=== PATIENT | female | born 1950 | race African-American/Black ===

== ENCOUNTER → 2016-05-05 | Outpatient (CLI) | payer BC, MEDICARE ==
--- NOTE | 2016-05-05 08:04 | RAD ---
EXAM: Sinus CT without contrast. HISTORY: Sinus pain. TECHNIQUE: Computed tomographic images of the paranasal sinuses were obtained without contrast. One or more of the following individualized dose reduction techniques were utilized for this examination: 1. Automated exposure control. 2. Adjustment of the mA and/or kV according to patient size. 3. Use of iterative reconstruction technique. COMPARISON: None. FINDINGS: There is minimal ethmoid and maxillary sinus mucosal thickening. There are small right maxillary sinus mucous retention cysts. The ostiomeatal units are patent. There is no nasal septal deviation. There is no sinus wall thickening or erosion. The orbits and mastoid air cells are unremarkable. There are multiple dental restorations and missing teeth. The visualized portions of the brain and calvarium are unremarkable. IMPRESSION: 1. Minimal maxillary and ethmoid sinus disease. 2. No evidence of acute sinusitis.
== END | disposition home or self-care (01) ==
LOC: CT 07:15
PROVIDERS: ATTEND Family Medicine
DX: J34.89 Other specified disorders of nose and nasal sinuses (principal)
CPT/HCPCS: 70486

== ENCOUNTER → 2017-02-15 | Outpatient (CLI) | payer BC ==
--- NOTE | 2017-02-16 16:20 | KCIC ---
DATE: 02/15/2017 EXAM: MAMMO LOGAN SCREENING BILATERAL HISTORY: Asymptomatic screening mammogram. Mother with a history of breast cancer diagnosed at age 63. COMPARISON: Prior mammograms from 02/03/2016, 07/03/2009 This study was interpreted with the benefit of Computerized Aided Detection (CAD). The breast parenchyma is primarily fatty replaced. Breast parenchyma level density A. FINDINGS: Bilateral CC and MLO views of the breasts were performed. Bilateral breast tomosynthesis was performed in CC and MLO projections. Right breast: There are no suspicious microcalcifications, masses or areas of architectural distortion. Left breast: There are no suspicious microcalcifications, masses or areas of architectural distortion. Findings are stable from prior mammogram. IMPRESSION: Negative 2-D and 3-D bilateral mammogram. Recommend annual screening mammography. BI-RADS CATEGORY: 1 NEGATIVE RECOMMENDED FOLLOW-UP: 12M 12 MONTH FOLLOW-UP PQRS compliance statement: Patient information was entered into a reminder system with a target due date 02/15/2018 for the next mammogram. Mammography is a sensitive method for finding small breast cancers, but it does not detect them all and is not a substitute for careful clinical examination. A negative mammogram does not negate a clinically suspicious finding and should not result in delay in biopsying a clinically suspicious abnormality. "Our facility is accredited by the [employer] Mammography Program."
== END | disposition home or self-care (01) ==
LOC: KCIC MAMMO 17:55
PROVIDERS: ATTEND Family Medicine
DX: Z12.31 Encounter for screening mammogram for malignant neoplasm of breast (principal); Z80.3 Family history of malignant neoplasm of breast
CPT/HCPCS: 77063; G0202; 77067

== ENCOUNTER → 2020-01-16 | Outpatient (CLI) | payer BC ==
--- NOTE | 2020-01-16 17:22 | RAD ---
Examination: KNEE STANDING BILAT AP, KNEE LEFT 4V History: PRIMARY OSTEOARTHRITIS OF LEFT KNEE. Comparison/Correlation: None Findings: 4 views of the left knee were obtained. Standing bilateral frontal view of the knees also provided. Joint spaces are normal. No acute fracture or bone destruction. No joint effusion. Soft tissues are unremarkable. No significant left medial or lateral compartment narrowing. Frontal view of the knees is unremarkable. Impression: No suspicious process. No significant degenerative change. Electronically signed by: Dread Dash MD (01/16/2020 5:19 PM) [id number]
== END | disposition home or self-care (01) ==
LOC: RAD 15:12
PROVIDERS: ATTEND Family Medicine
DX: M17.12 Unilateral primary osteoarthritis, left knee (principal)
CPT/HCPCS: 73564; 73565

== ENCOUNTER → 2020-02-15 | Outpatient (CLI) | payer BC ==
--- NOTE | 2020-02-15 09:43 | KCIC ---
Bilateral digital screening mammograms with 3-D tomosynthesis: Reason for examination: Routine screening. Comparison is made to previous studies dated back to 03/30/2012. Bilateral mammograms in CC and oblique projections were obtained with 2-D imaging and 3-D tomosynthesis imaging on a Siemens Inspiration unit and reviewed on the workstation. Interpretation was made with the benefit of CAD. The skin and nipples show no abnormalities. No abnormal axillary lymph nodes are seen. The breast parenchyma is predominantly fatty. (Breast density: Category A.) There appear to be some clustered calcifications developing in the 3:00 B position of the left breast. Some of these are coarse and may be associated with a small nodule and represent a degenerating fibroadenoma. Further evaluation however with coned compression magnification views and ultrasound is recommended. There are no other dominant masses, suspicious calcifications or architectural distortion. Impression: Clustered calcifications at the 3:00 B position of the left breast possibly associated with a small nodule. Some of these calcifications are coarse and may represent a degenerating fibroadenoma but further evaluation with coned compression magnification views and ultrasound is recommended. BI-RADS Category 0: Incomplete. Needs additional imaging evaluation. "Our facility is accredited by the [employer] Mammography Program." This patient's information has been entered into a reminder system for the patient to be notified with the results of her examination and a target date for the next mammogram. Electronically signed by: Chana Venegas MD (02/15/2020 9:41 AM) [id number]
== END ==
LOC: KCIC MAMMO 07:54
PROVIDERS: ATTEND Family Medicine
DX: Z12.31 Encounter for screening mammogram for malignant neoplasm of breast (principal); N64.89 Other specified disorders of breast
CPT/HCPCS: 77067

== ENCOUNTER → 2020-07-11 | Outpatient (CLI) | payer BC ==
[~2020-07-11] MED LIST: CHLOROPROCAINE 3% MPF 20 ML VIAL. IJ ONE
--- NOTE | 2020-07-11 09:52 | RAD ---
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 These are benign concordant re sults. Recommend return to routine screening. Electronically signed by: Dylan Cortes MD (07/16/2020 8:40 AM) [id number] ORIGINAL REPORT Examination: 1. Left breast vacuum assisted stereotactic biopsy 2. Left digital post procedure mammogram. INDICATION: 70-year-old woman with left breast calcifications recommended for biopsy. She has a histo ry of lidocaine allergy. TECHNIQUE AND FINDINGS: Informed consent was obtained and an appropriate procedural pause observed. Using standard sterile te chnique, stereotactic mammographic imaging guidance and a 9 gauge vacuum-assisted biopsy needle with local anesthesia (utilizing 3 percent Nesacaine in lieu of lidocaine), multiple vacuum assisted core biopsy samples were obtained of the calcifications in the anterior upper outer left breast. A specimen radiograph was obtained, confirming successful sampling of the calcifications targeted. Th e needle was therefore removed, a yosvany-shaped biopsy marker deployed, and hemostasis assured with dire ct breast compression for several minutes. Puncture site was dressed and postprocedure instructions were reviewed. Thereafter, 2 view left digital diagnostic mammogram confirmed satisfactory positioning of the biopsy marker in the area of targeted calcifications with a few residual calcifications still present. No p ostbiopsy hematoma. Patient tolerated the procedure without incident. Post procedure instructions were provided and patie nt discharged in stable condition to follow up with her referring physician IMPRESSION: Successful left breast stereotactic biopsy of coarse heterogeneous calcifications and satisfactory de ployment of a biopsy marker at the biopsy site. Pathology results are pending. An addendum will be is sued when pathology results become available. Electronically signed by: Dylan Cortes MD (07/11/2020 9:49 AM) [id number]
--- NOTE | 2020-07-15 15:07 | PATHOLOGY ---
[facility] Accession Number: [id number] . 01 Material submitted: . breast - LEFT BREAST TISSUE BIOPSY. Modifiers: left . 01 Clinical history: . CALCIFICATIONS CALCS IN SPECIMEN LEFT BREAST CALCIFICATIONS . 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 - Proliferative fibrocystic changes with florid ductal epithelial hyperplasia. (JPM:atiya 07/15/2020) [facility] 07/15/2020 1018 Local . 02 Comment: Sections of the left breast needle biopsy reveal a sclerotic ductal papilloma. Within the area of sclerosis there are focal entrapped tubular structures and focal stromal calcifications. The breast tissue elsewhere shows stromal fibrosis, duct ectasia, and florid ductal epithelial hyperplasia. Immunoperoxidase stains for myoepithelial cells are obtained on two of the blocks and yield the following results: . P63 (A1): Presence of myoepithelial cells within tubular structures of sclerotic ductal papilloma. Smooth muscle myosin heavy chain (A1): Presence of myoepithelial cells within tubular structures of sclerotic ductal papilloma. P63 (A2): Presence of myoepithelial cells within tubular structures of sclerotic ductal papilloma. Smooth muscle myosin heavy chain (A2): Presence of myoepithelial cells within tubular structures of sclerotic ductal papilloma. . The morphologic and immunophenotypic findings are supportive of the diagnosis of sclerotic ductal papilloma and proliferative fibrocystic changes with florid ductal epithelial hyperplasia. There is no atypia or evidence of malignancy. (JPM:[facility] 07/15/2020) . Special stains performed: Immunoperoxidase stains for p63 on A1 and A2, and for smooth muscle myosin heavy chain on A1 and A2. . 02 Electronically signed: . Shaji Ley MD, Pathologist NPI- [id number] . 01 Gross description: . Received in formalin labeled "Susi Calabrese, left breast calcifications" are multiple alarcon-yellow cylindrical soft tissue cores measuring in aggregate 3.0 x 2.5 x 0.4 cm. The specimen is submitted entirely in cassettes A1-A3. The specimen is removed from the patient at 0850 and placed in formalin at 0900 on 07/11/2020. The specimen is removed from formalin at 2150 on 07/11/2020. ([facility] [place], [place]; 07/11/2020) [facility] 07/11/2020 1527 Local . 02 Pathologist provided ICD-10: D24.2, N60.12 . 02 CPT . 403964, B30654, [id number] Specimen Comment: A courtesy copy of this report has been sent to [phone] Specimen Comment: [id number], Specimen Comment: Report sent to ,DR ETIENNE / DR GILLESPIE Performed at: 01 [facility] [address], [place] [id number] MD Ilan Suazo MD Phone: [phone] Performed at: 02 [facility] [address] [place], [place] [id number] MD Shaji Ley MD Phone: [phone]
== END | disposition home or self-care (01) ==
LOC: MAMMO 10:04
PROVIDERS: ATTEND Surgery
DX: R92.0 Mammographic microcalcification found on diagnostic imaging of breast (principal); D24.2 Benign neoplasm of left breast; N60.12 Diffuse cystic mastopathy of left breast; N62 Hypertrophy of breast; I10 Essential (primary) hypertension; Z88.0 Allergy status to penicillin; Z88.1 Allergy status to other antibiotic agents; Z88.6 Allergy status to analgesic agent
CPT/HCPCS: 19081; 77065; 88305; 88341; 88342